=== PATIENT | female | born 1980 | race Caucasian/White ===

== ENCOUNTER 2025-05-10 18:55 | Emergency (ER) | payer OTHER, SELFPAY ==
[2025-05-10 18:56] VITALS: BP 117/92; TEMP 35.9
--- OUTSIDE RECORDS SUMMARY | 2025-05-10 18:57 | XMS_ITS | Encounter Summary ---
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
--- OUTSIDE RECORDS SUMMARY | 2025-05-10 18:57 | XMS_ITS | Continuity of Care Document ---
Author Organization [facility] Address [address] [place] [address] Phone Care Team Providers Care Elementary Substitute Teacher Name Role Phone Melissa ANDIRosa Unavailable Unavailable Advance Directives Directive Yes / No Effective Date File Name No Information Encounters Encounter Description Practice Location Reason(s) For Visit Diagnoses Date Provider Providers Copied on Encounter [facility], [address] [place], [id number], [place] tel:[phone] [facility] No Information 2 Melissa Rosa. [address] [place], [id number], [place]. tel:[phone] Family History Family Member Type Diagnosis Age At Onset No Information Payers Payer name Insurance type Covered alliance party ID Authoriza tion(s) No Information Social History Type Description Quantity Date Captured Comments Sex Female Smoking Status No Information Chief Complaint And Reason For Visit No Information Reason For Referral Reason For Referral No Information History Of Present Illness Encounter Date Complaint History Of Prese nt Illness No Information Functional Status Date Functional Assessmen t No Information Instructions Date Instruction Additional Infor mation No Information Assessments Type Assessment Date No Information Patient Care Teams Name Effective Dates (start - stop) Status Members No Information
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
--- NOTE | 2025-05-10 19:06 | ED.GENADULT ---
HPI - General Adult General Chief complaint: Unspecified Stated complaint: swelling Time Seen by Provider: 05/10/25 18:59 Source: patient Mode of arrival: ambulatory Limitations: no limitations History of Present Illness HPI narrative: this is a 44-year-old female who presents with some neck pain and numbness radiating to her right arm with with no right arm weakness no neurological deficits nose pain in her right arm no redness or erythema no chest pain no shortness of breath abdominal pain no fever chills. Onset (ago): hour(s) Location: upper extremity Radiation: neck Severity: mild Related Data Allergies Allergy/AdvReac Type Severity Reaction Status Date / Time codeine Allergy Unknown Unknown Verified 05/10/25 19:00 Penicillins Allergy Unknown Unknown Verified 05/10/25 19:00 BUTORPHANOL TARTRATE Allergy Unknown Unknown Uncoded 05/10/25 19:00 Review of Systems Review of Systems: All systems reviewed & are unremarkable except as noted in HPI and below PMFSH Past Medical History Medical History Patient denies medical problems Exam Const: General: cooperative, healthy appearing, comfortable, no acute distress, well developed, alert and awake HENMT: Head: normal to inspection and No palpable skull fracture present Eyes: General: appearance normal, both eyes and all related structures Visual Campbell: normal visual campbell by confrontation Neck: Neck: normal visual inspection, full ROM, no lymphadenopathy and no meningeal signs Chest: Chest palpation & inspection: normal inspection of the chest and normal palpation of entire chest wall Resp: Effort & Inspection: normal respiratory effort and able to speak in complete sentences Auscultation: clear to auscultation bilaterally Cardio: Palpation: normal PMI Rate: regular rate Rhythm: regular rhythm Heart sounds: S1 normal heart sound present and S2 normal heart sound present GI: Inspection: normal to inspection : General: Yes bimanual renal exam normal bilaterally Back/Spine/Pelvis: Back: no CVA tenderness Cervical Spine: normal cervical lordosis and pain with cervical ROM Thoracic/Lumbar Spine: thoracic and lumbar spine normal to inspection and straight leg raise negative bilaterally Skin: General skin exam: normal color and no rashes or lesions noted Neuro: General: oriented to person, oriented to place, oriented to time, patient oriented x3 and gait normal Speech: normal speech Gait exam (Neuro): Normal gait present Course Course Emergency Course: patient evaluated reassured and having neck pain with some radiculopathy and will be sending prescription medication to patient's pharmacy. Vital Signs Vital signs: Vital Signs Temperature 35.9 C L 05/10/25 18:56 Blood Pressure 117/92 H 05/10/25 18:56 Temperature 35.9 C L 05/10/25 18:56 Blood Pressure 117/92 H 05/10/25 18:56 Medical Decision Making Vital Signs Vital Signs: Vital Signs Temperature 35.9 C L 05/10/25 18:56 Blood Pressure 117/92 H 05/10/25 18:56 Temperature 35.9 C L 05/10/25 18:56 Blood Pressure 117/92 H 05/10/25 18:56 Critical Care Time Critical Care Time Critical Care Time: No Discharge Plan Discharge Clinical Impression: Cervical radiculopathy Patient Disposition: Home Condition: Stable Instructions: Antibiotic Form, Cervical Radiculopathy (ED) Additional Instructions: advised patient to take medication as prescribed and to follow with primary care physician within the next 3 to 5 days for further evaluation and treatment. Patient Language: Slovenian Prescriptions: New naproxen 500 mg tablet 500 mg PO BID PRN (Reason: pain) Qty: 14 0RF Follow-up/Referrals: Ty Walker DO [Primary Care Provider] - Time of Disposition: 19:11
--- OUTSIDE RECORDS SUMMARY | 2025-05-10 19:15 | XMS_ITS | Encounter Summary ---
Author Organization [facility] Address [address] [place] [address] Phone Care Team Providers Care Non Cdl Driver Name Role Phone Patrick Barton MD Unavailable [phone] Odilia Reyes MD Primary Care Provider [phone] Jose Gilliland MD Unavailable [phone] Bi Shafer MD Unavailable [phone] Reason for Visit * Reason Comments Medication Refill Encounter Details Date Type Department Care Team (Late st Contact Info) Description 02/08/2025 Refill [facility] #[address] [place] [address] Patrick Barton MD [address] [place] [address] Medication Refill Social History Tobacco Use Types Packs/Day Years Used Date Smoking Tobacco: Every Day Cigarettes 1 17 Smokeless Tobacco: Never Alcohol Use Standard Drinks/Week Comments Yes 0 (1 standard drink = 0.6 oz pur e alcohol) occassional Comments No Sex and Gender Information Value Date Recorded Sex Assigned at Not on file Legal Sex Female 7:14 PM CDT Gender Identity Not on file Sexual Orientation Not on file Occupation Industry Job Start Date Job End Date unemployed Not on file Not on file Not on file documented as of this encounter Plan of Treatment Upcoming Encounters Date Type Department Care Team (Late st Contact Info) Description 10/01/2025 11:00 AM FLOWER SHOP LABORER/DESIGNER Office Visit [facility] [address] [place] [address] Bi Shafer MD [address] [place] [address] documented as of this encounter Visit Diagnoses Not on filedocumented in this encounter Care Teams Non Cdl Driver Relationship Specialty Start Date End Date Odilia Reyes MD [address] [place] [address] PCP - General Family Medicine 10/20/22 Patrick Barton MD [address] [place] [address] Consulting Physician Neurology 02/16/22 Jose Gilliland MD [address] [place] [address] Consulting Physician Gastroenterology 12/24/22 Bi Shafer MD [address] [place] [address] Consulting Physician Medical Oncology 08/19/23 documented as of this encounter
--- OUTSIDE RECORDS SUMMARY | 2025-05-10 19:15 | XMS_ITS | Encounter Summary ---
Author Organization [facility] Address [address] [place] [address] Phone Care Team Providers Care Mail Distribution Clerk Name Role Phone Patrick Barton MD Unavailable [phone] Odilia Reyes MD Primary Care Provider [phone] Jose Gilliland MD Unavailable [phone] Bi Shafer MD Unavailable [phone] Reason for Visit * Reason Comments Medication Refill Encounter Details Date Type Department Care Team (Late st Contact Info) Description 02/04/2023 Refill [facility] #2 [place] [address] Patrick Barton MD [address] [place] [address] Medication Refill Social History Tobacco [...] file Not on file Not on file COVID-19 Exposure Response Date Recorded In the last 10 days, have yo u been in contact with someone who was confirmed or suspected to have Coronavirus/COVID-19? No / Unsure 01/30/2023 8:41 PM CDT documented as of this encounter Miscellaneous Notes * Telephone Encounter - Odilia Casas RN - 02/04/2023 3:20 PM CDT Medication failed the protocol, provider to review and approve the medication order if appropriate. Requested Prescriptions Pending Prescriptions Disp Refills gabapentin (NEURONTIN) 300 MG Capsule [Pharmacy Med Name: GABAPENTIN 300MG CAPS] 270 Capsule 0 Sig: TAKE ONE CAPSULE BY MOUTH THREE TIMES A DAY Not Delegated - Anticonvulsants Excluding Benzodiazepines Protocol Failed - 02/04/2023 2:46 PM Failed - This refill cannot be delegated Passed - Visit with relevant provider in past 12 months or upcoming 90 days Recent Visits Date Type Provider Dept 02/16/22 Office Visit Patrick Barton MD [facility] Neurology [facility] Showing recent visits within past 365 days and meeting all other requirements Future Appointments No visits were found meeting these conditions. Showing future appointments within next 90 days and meeting all other requirements documented in this encounter Plan of Treatment Upcoming Encounters Date Type Department Care Team (Late st Contact Info) Description 10/01/2025 11:00 AM INTERSTATE BUS DRIVER [facility] [address] [place] [address] Bi Shafer MD [address] [place] [address] documented as of this encounter Visit Diagnoses Not on filedocumented in this encounter Care Teams Mail Distribution Clerk Relationship Specialty Start Date End Date Odilia Reyes MD [address] [place] [address] DR TEJEDA [address] [place] [address] PCP - General Family Medicine 10/20/22 Patrick Barton MD [address] [place] [address] Consulting Physician Neurology 02/16/22 Jose Gilliland MD [address] [place] [address] Consulting Physician Gastroenterology 12/24/22 Bi Shafer MD [address] [place] [address] Consulting Physician Medical Oncology 08/19/23 documented as of this encounter
--- OUTSIDE RECORDS SUMMARY | 2025-05-10 19:15 | XMS_ITS | Encounter Summary ---
Author Organization [facility] Address [address] [place] [address] Phone Care Team Providers Care Director Emergency Department Name Role Phone Patrick Barton MD Unavailable [phone] Odilia Reyes MD Primary Care Provider [phone] Jose Gilliland MD Unavailable [phone] Bi Shafer MD Unavailable Encounter Details Date Type Department Care Team (Late st Contact Info) Description 03/20/2025 Results Follow-Up [facility] Oncologists [address] [place] [address] Dasha Gleason, SAMPLE STITCHER, [employer] [address] [place], [place] [id number] CMP (COMPREHENSIVE METABOLIC PANEL), FERRITIN, VITAMIN B12, Additional followed-up results: 2 Social History Tobacco Use Types Packs/Day Years [...] Upcoming Encounters Date Type Department Care Team ([facility] st Contact Info) Description 10/01/2025 11:00 AM SENIOR PROCUREMENT MANAGER Office Visit [facility] [address] [place] [address] Bi Shafer MD [address] [place] [address] documented as of this encounter Visit Diagnoses Not on filedocumented in this encounter Care Teams Director Emergency Department Relationship Specialty Start Date End Date Odilia Reyes MD [address] [place] [address] PCP - General Family Medicine 10/20/22 Patrick Barton MD [address] [place] [address] Consulting Physician Neurology 02/16/22 Jose Gilliland MD [address] [place] [address] Consulting Physician Gastroenterology 12/24/22 Bi Shafer MD [address] [place] [address] Consulting Physician Medical Oncology 08/19/23 documented as of this encounter
--- OUTSIDE RECORDS SUMMARY | 2025-05-10 19:15 | XMS_ITS | Continuity of Care Document ---
Author Organization [facility] Address [address] [place] [address] Phone Care Team Providers Care Poker Machine Attendant Name Role Phone Melissa ANDIRosa Unavailable Unavailable Advance Directives Directive Yes / No Effective Date File Name No Information Encounters Encounter Description Practice Location Reason(s) For Visit Diagnoses Date Provider Providers Copied on Encounter [facility], [address] [place], [id number], [place] tel:[phone] [facility] No Information 2 Melissa Rosa. [address] [place], [id number], [place]. tel:[phone] Family History Family Member Type Diagnosis Age At Onset No Information Payers Payer name Insurance type Covered green party ID Authoriza tion(s) No Information Social [...]
--- OUTSIDE RECORDS SUMMARY | 2025-05-10 19:15 | XMS_ITS | Encounter Summary ---
Author Organization [facility] Address [address] [place] [address] Phone Care Team Providers Care Lan Specialist Name Role Phone Jj Adams MD Primary Care Provider Provider, None Primary Care Provider Unavailabl e Patrick Barton MD Unavailable [phone] Provider, Not On File Primary Care Provider Unav ailable Odilia Reyes MD Primary Care Provider [phone] Jose Gilliland MD Unavailable [phone] Bi Shafer MD Unavailable [phone] Reason for Visit * Reason Comments Medication Refill Encounter Details Date Type Department Care Team (Late st Contact Info) Description 05/22/2021 Refill [facility] [address] [place] [address] [address] Patrick Barton MD [address] [place] [address] Medication Refill Social History Tobacco [...] st Contact Info) Description 10/01/2025 11:00 AM BEAM SAW OPERATOR Office Visit [facility] [address] [place] [address] Bi Shafer MD [address] [place] [address] documented as of this encounter Visit Diagnoses Not on filedocumented in this encounter Care Teams Lan Specialist Relationship Specialty Start Date End Date Jj Adams MD [address] [place] [address] [place] [address] PCP - General Family Medicine 08/01/20 02/15/22 Provider, None [place] PCP - General 02/16/22 10/15/22 Provider, Not On File [place] PCP - General 10/16/22 10/19/22 Odilia Reyes MD [address] [place] [address] [place] [address] PCP - General Family Medicine 10/20/22 Patrick Barton MD [address] [place] [address] Consulting Physician Neurology 02/16/22 Jose Gilliland MD [address] [place] [address] Consulting Physician Gastroenterology 12/24/22 Bi Shafer MD [address] [place] [address] Consulting Physician Medical Oncology 08/19/23 documented as of this encounter
--- OUTSIDE RECORDS SUMMARY | 2025-05-10 19:15 | XMS_ITS | Encounter Summary ---
Author Organization [facility] Address [address] [place] [address] Phone Care Team Providers Care Radiology Resident Name Role Phone Patrick Barton MD Unavailable [phone] Odilia Reyes MD Primary Care Provider [phone] Jose Gilliland MD Unavailable [phone] Bi Shafer MD Unavailable [phone] Reason for Visit * Reason Comments Medication Refill Encounter Details Date Type Department Care Team (Late st Contact Info) Description 04/05/[address] [facility] [address] [place] [address] Patrick Barton MD [address] [place] [address] Medication Refill Social History Tobacco [...] suspected to have Coronavirus/COVID-19? No / Unsure 04/04/2023 1:42 PM CDT documented as of this encounter Miscellaneous Notes * Telephone Encounter - Odilia Casas RN - 04/06/2023 8:19 AM CDT Medication failed the protocol, provider to review and approve the medication order if appropriate. Requested Prescriptions Pending Prescriptions Disp Refills gabapentin (NEURONTIN) 300 MG Capsule [Pharmacy Med Name: GABAPENTIN 300MG CAPS] 90 Capsule 0 Sig: TAKE ONE CAPSULE BY MOUTH THREE TIMES A DAY Not Delegated - Anticonvulsants Excluding Benzodiazepines Protocol Failed - 04/05/2023 1:30 PM Failed - This refill cannot be delegated Passed - Visit with relevant provider in past 12 months or upcoming 90 days Recent Visits No visits were found meeting these conditions. Showing recent visits within past 365 days and meeting all other requirements Future Appointments Date Type Provider Dept 06/29/23 Appointment Patrick Barton MD [facility]rology [facility] Showing future appointments within next 90 days and meeting all other requirements documented in this encounter Plan of Treatment Upcoming Encounters Date Type Department Care Team (Late st Contact Info) Description 10/01/2025 11:00 AM TRAIN DISPATCHER [facility] [address] [place] [address] Bi Shafer MD [address] [place] [address] documented as of this encounter Visit Diagnoses Not on filedocumented in this encounter Care Teams Radiology Resident Relationship Specialty Start Date End Date Odilia Reyes MD [address] [place] [address] DR TEJED[address] [place] [address] PCP - General Family Medicine 10/20/22 Patrick Barton MD [address] [place] [address] Consulting Physician Neurology 02/16/22 Jose Gilliland MD [address] [place] [address] Consulting Physician Gastroenterology 12/24/22 Bi Shafer MD [address] [place] [address] Consulting Physician Medical Oncology 08/19/23 documented as of this encounter
--- OUTSIDE RECORDS SUMMARY | 2025-05-10 19:15 | XMS_ITS | Encounter Summary ---
Author Organization [facility] Address [address] [place] [address] Phone Care Team Providers Care Retention Representative Name Role Phone Jj Adams MD Primary Care Provider [phone] Provider, None Primary Care Provider Unavailabl e Patrick Barton MD Unavailable [phone] Provider, Not On File Primary Care Provider Unav ailable Odilia Reyes MD Primary Care Provider [phone] Jose Gilliland MD Unavailable [phone] Bi Shafer MD Unavailable [phone] Reason for Visit * Reason Comments Medication Refill Encounter Details Date Type Department Care Team (Late st Contact Info) Description 11/26/2021 Refill [facility] - [facility] #[address] [place] [address] Patrick Barton MD [address] [place] [address] Medication Refill Social History Tobacco [...] on file documented as of this encounter Miscellaneous Notes * Telephone Encounter - Odilia Casas RN - 11/27/2021 9:47 AM CST . M ENGINEER documented in this encounter Plan of Treatment Upcoming Encounters Date Type Department Care Team (Late st Contact Info) Description 10/01/2025 11:00 AM STEAM ENGINEER Office Visit [facility] On[facility] [address] [place] [address] Bi Shafer MD [address] [place], [place] [phone] documented as of this encounter Visit Diagnoses Diagnosis Trigeminal neuralgia documented in this encounter Care Teams Retention Representative Relationship Specialty Start Date End Date Jj Adams MD [address] [facility] [address] [address] [place] [address] PCP - General Family Medicine 08/01/20 02/15/22 Provider, None [place] PCP - General 02/16/22 10/15/22 Provider, Not On File [place] PCP - General 10/16/22 10/19/22 Odilia Reyes MD [address] [place] [address] PCP - General Family Medicine 10/20/22 Patrick Barton MD [address]2 [facility] [place] [address] Consulting Physician Neurology 02/16/22 Jose Gilliland MD [address] [place] [address] Consulting Physician Gastroenterology 12/24/22 Bi Shafer MD [address] [place] [address] Consulting Physician Medical Oncology 08/19/23 documented as of this encounter
--- OUTSIDE RECORDS SUMMARY | 2025-05-10 19:15 | XMS_ITS | Encounter Summary ---
Author Organization [facility] Address [address] [place] [address] Phone Care Team Providers Care General Farmworker Name Role Phone Patrick Barton MD Unavailable [phone] Odilia Reyes MD Primary Care Provider [phone] Jose Gilliland MD Unavailable [phone] iB Shafer MD Unavailable [phone] Reason for Visit * Reason Comments Medication Refill Encounter Details Date Type Department Care Team (Late st Contact Info) Description 02/04/2024 Refill [facility] [address] [place] [address] Patrick Barton MD [address] [place] [address] Medication Refill Social History Tobacco [...] Telephone Encounter - Odilia Casas RN - 02/07/2024 8:23 AM CDT Medication failed the protocol, provider to review and approve the medication order if appropriate. Requested Prescriptions Pending Prescriptions Disp Refills amitriptyline (ELAVIL) 25 MG Tablet [Pharmacy Med Name: AMITRIPTYLINE HCL 25 MG TAB] 90 Tablet 1 Sig: TAKE 1 TABLET BY MOUTH EVERY DAY AT NIGHT Not Delegated - Tricyclic Agents Protocol Failed - 02/04/2024 11:04 PM Failed - This refill cannot be delegated Passed - Visit with relevant provider in past 12 months or upcoming 90 days Recent Visits Date Type Provider Dept 01/04/24 Telemedicine Patrick Barton MD [facility] Neurology [facility] 05/17/23 Office Visit Patrick Barton MD [facility] Showing recent visits within past 365 days and meeting all other requirements Future Appointments No visits were found meeting these conditions. Showing future appointments within next 90 days and meeting all other requirements documented in this encounter Plan of Treatment Upcoming Encounters Date Type Department Care Team (Late st Contact Info) Description 10/01/2025 11:00 AM AUTO CLUB TRAVEL COUNSELOR [facility] [address] [place] [address] Bi Shafer MD [address] [place] [address] documented as of this encounter Visit Diagnoses Not on filedocumented in this encounter Care Teams General Farmworker Relationship Specialty Start Date End Date Odilia Reyes MD [address] [place] [address] [address] PCP - General Family Medicine 10/20/22 Patrick Barton MD [address] [place] [address] Consulting Physician Neurology 02/16/22 Jose Gilliland MD [address] [place] [address] Consulting Physician Gastroenterology 12/24/22 Bi Shafer MD [address] [place] [address] Consulting Physician Medical Oncology 08/19/23 documented as of this encounter
--- OUTSIDE RECORDS SUMMARY | 2025-05-10 19:15 | XMS_ITS | Clinical Summary ---
Author Organization [facility] Address [address] [place] [address] Phone Care Team Providers Care Supervisor Ore Dressing Name Role Phone Patrick Barton MD Unavailable [phone] Odilia Reyes MD Primary Care Provider [phone] Jose Gilliland MD Unavailable [phone] Bi Shafer MD Unavailable [phone] Allergies Active Allergy Reactions Criticality Noted Date Comments Aripiprazole Other (see Comments) 05/17/2023 Shaking/drooling Baclofen Vomiting 02/12/2022 Hand/leg swelling Nsaids Other (see Comments) 08/22/2020 ulcers Penicillins Anaphylaxis High 09/19/2019 Butorphanol Other (see Comments) High 09/19/2019 B/P bottomed out and blacked out Medications melatonin 3 MG Tablet Take 5 mg by mouth nightly. Active Cariprazine HCl 3 MG Capsule Take by mouth. Acti ve venlafaxine (EFFEXOR-XR) 75 MG CAPSULE SR 24 HR Take 75 mg by mouth in the morning and at bedtime. 023 Active prazosin (MINIPRESS) 2 MG Capsule 2 times daily. 023 Active hydrOXYzine (ATARAX) 25 MG Tablet TAKE 1 TABLET BY MOUTH THREE TIMES A DAY NEEDED 023 Active cyanocobalamin (VITAMIN B-12) 1000 MCG/ML Solution 1 mL by Subcutaneous route every 30 days. 3 mL 6 024 Active Additional Information Patient not taking.Reported on 03/29/2025 Insulin Syringe-Needle U-100 (INSULIN SYRINGE 1CC/31G) 31G X 03/16 1 ML Misc As instructed 12 Each 2 024 Active amitriptyline (ELAVIL) 25 MG Tablet TAKE 1 TABLET BY MOUTH EVERY DAY AT NIGHT 90 Tablet 1 024 Active pantoprazole (PROTONIX) 40 MG Tablet Delayed ResponseIndications :Symptomatic Gastroesophageal Reflux Disease (Inactive) TAKE 1 TABLET BY MOUTH DAILY. INDICATIONS: GASTROESOPHAGEAL REFLUX DISEASE WITH CURRENT SYMPTOMS 90 Tablet 025 Active Active Problems Problem Noted Date Diagnosed Date Neck pain 03/29/2025 Absolute anemia 09/21/2024 B12 deficiency 02/21/2024 Morbid obesity 01/10/2024 H/O splenectomy 11/16/2023 Iron deficiency anemia due to chronic blood loss 09/20/2023 Acute blood loss anemia 08/19/2023 Internal jugular (IJ) vein thromboembolism, acut e, right 08/19/2023 Odontogenic infection of jaw 08/19/2023 KARLOS (obstructive sleep apnea) 08/01/2020 Gastroesophageal reflux disease without esophagi tis 08/01/2020 Major depressive disorder with single episode Encounters Date Type Department Care Team Description 03/29/2025 11:00 AM CDT Office Visit [facility] Oncology Services [address] [place] [address] Bi Shafer MD Internal jugular (IJ) vein thromboembolism, acute, right (HCC) (Primary Dx); Neck pain; H/O splenectomy; Other vitamin B12 deficiency anemia; Iron deficiency anemia due to chronic blood loss; Odontogenic infection of jaw Discharge Disposition: Discharged to home or Selfcare 03/29/2025 Travel 03/20/2025 Results Follow-Up [facility] [address] [place] [address] Dasha Gleason, CASTING CLEANER, PRESS TOOL MAKER CMP (COMPREHENSIVE METABOLIC PANEL), FERRITIN, VITAMIN B12, Additional followed-up results: 2 02/08/2025 Telephone [facility] [address] [place] [address] Patrick Barton MD 02/08/2025 [facility] [place] [address] Patrick Barton MD Medication Refill from Last 3 Months Family History Medical History Relation Name Comments Depression Father Hypertension Father Other-comment Father Lung disease f rom chemical spill Cancer Maternal Grandfather lung Heart Attack Maternal Grandfather Depression Mother Relation Name Status Comments Father Alive Maternal Grandfather Mother Alive Social History Tobacco Use Types Packs/Day Years Used Date Smoking Tobacco: Every Day Cigarettes 1 17 Smokeless Tobacco: Never Tobacco Cessation:Ready to Q uit: Not Asked; Counseling Given: Not Answered Alcohol Use Standard Drinks/Week Comments Yes 0 [...] file Not on file Not on file Last Filed Vital Signs Vital Sign Reading Time Taken Comments Blood Pressure 125/83 03/29/2025 11:09 AM CDT Pulse 82 03/29/2025 11:09 AM CDT Temperature 36.8 C (98.2 F) 03/29/2025 11:09 AM CDT Respiratory Rate 18 03/29/2025 11:0 9 AM CDT Oxygen Saturation 100% 03/29/2025 11: 09 AM CDT Inhaled Oxygen Concentration - - Weight 139.2 kg (306 lb 14.4 oz) 2024 11:09 AM CDT Height 170.2 cm (5' 7) 03/29/2025 11:0 9 AM CDT Body Mass Index 48.07 03/29/2025 11:09 AM CDT Plan of Treatment Upcoming Encounters Date Type Department Care Team (Late st Contact Info) Description 10/01/2025 11:00 AM BOMB TECHNICIAN Office Visit [facility] On[facility] Services [address] [place] [address] Bi Shafer MD [address] [place] [address] Health Maintenance Due Date Last Done Comments Hepatitis C Virus (HCV) Screening 1981 Meningococcal Immunization (ACWY) (1 - Risk 2-dose series) 1983 Human Papillomavirus (HPV) Immunization (1 - 3-dose series) 1996 Hepatitis B Immunization (1 of 3 - 19+ 3-dose series) 2000 Pap Smear 2002 Cervical Cancer Screening (CCS) 2011 HPV/Cotest 2011 Mammogram 05/26/2024 05/26/2023 SARS-COV-2 Immunization ( season) 2024 Influenza Immunization (#1) 07/02/202508/02, 08/02/2019, 07/29/2017, Additional history exists Colonoscopy 07/02/2031 07/02/2021 Colorectal Cancer Screening 07/02/2031 Respiratory Syncytial Virus (RSV) Immunization (Adult) (1 - 1-dose 75+ series) 2056 Discussion re Starting/Frequency of Mammograms Completed 05/26/2023 DTaP/Tdap/Td Immunization Discontinued 10/15/2023 Pneumococcal Immunization Combined Completed 10/15/2023, 08/02/2019, 11/01/2013 TdaP Immunization Completed 10/15/2023 Rotavirus Immunization Aged Out No lo nger eligible based on patient's age to complete this topic Procedures Procedure Name Priority Date/Time Associated Diagnosis Comments CBC WITH AUTO DIFFERENTIAL Routine 03/20/2025 12:21 PM CDT Other iron deficiency anemia Other vitamin B12 deficiency anemia IRON,TRANSFERN,CALC.T IBC,%SAT Routine 03/20/2025 12:21 PM CDT Other iron deficiency anemia VITAMIN B12 Routine 03/20/2025 12:21 PM CDT Other vitamin B12 deficiency anemia FERRITIN Routine 03/20/2025 12:21 PM CDT Other iron deficiency anemia CMP (COMPREHENSIVE METABOLIC PANEL) Routine 03/20/2025 12:21 PM CDT Other iron deficiency anemia Other vitamin B12 deficiency anemia COMPLETE BLOOD COUNT (CBC) WITH DIFF Routine 03/20/2025 12:21 PM CDT Other iron deficiency anemia Other vitamin B12 deficiency anemia CHETAN SCREENING BILATERAL DIGITAL W CAD W NANCY Routine 05/26/2023 12:33 PM CDT Encounter for screening mammogram for malignant neoplasm of breast from Last 3 Months or Most Recently Relevant to Health Maintenance Results * (ABNORMAL) IRON,TRANSFERN,CALC.TIBC,%SAT (03/20/2025 12:21 PM CDT) IRON 90 25 - 156 mcg/dL 03/20/2025 1:42 PM CDT [facility] TRANSFERRIN 191 180 - 382 mg/dL 03/20/2025 1:[address] [facility] TIBC, CALCULATED 239(L) 265 - 497 mcg/dL 03/20/2025 1:[address] [facility] % SATURATION * 38 15 - 62 % 03/20/2025 1:[address] [facility] Blood Venipuncture / Unknown 03/20/2025 12:21 PM CDT 03/20/2025 1:16 PM CDT us Dasha Gleason CASTING CLEANER, PRESS TOOL MAKER CHEMISTRY ORDERABLES F inal Result [facility] [address] [place] [address] * (ABNORMAL) CBC WITH AUTO DIFFERENTIAL (03/20/2025 12:21 PM CDT) WBC 12.63(H) 4.00 - 12.00 10(3)/mcL 03/20/2025 1:[address] [facility] RBC 4.80 3.80 - 5.30 10(6)/[facility] 03/20/2025 1:[address] [facility] HEMOGLOBIN (HGB) 15.1 12.0 - 15.8 g/dL 03/20/2025 1:[address] [facility] HEMATOCRIT (HCT) 46.2 36.0 - 47.0 % 03/20/2025 1:[address] [facility] MCV 96.3(H) 82.0 - 96.0 fL 03/20/2025 1:[address] [facility] MCH 31.5 26.0 - 34.0 pg 03/20/2025 1:[address] [facility] MCHC 32.7 31.0 - 36.0 g/dL 03/20/2025 1:20 PM CDT [facility] PLATELET COUNT 228 140 - 440 10(3)/[facility] 03/20/2025 1:20 PM CDT [facility] RDW 13.1 11.8 - 15.5 % 03/20/2025 1:[address] [facility] MPV 11.6 9.7 - 12.4 fL 03/20/2025 1:20 PM CDT [facility] NEUTROPHILS 57.9 47.0 - 73.0 % 03/20/2025 1:[address] [facility] LYMPHOCYTES 30.3 18.0 - 42.0 % 03/20/2025 1:[address] [facility] MONOCYTES 8.2 4.0 - 12.0 % 03/20/2025 1:[address] [facility] EOSINOPHILS 2.3 0.0 - 5.0 % 03/20/2025 1:[address] [facility] BASOPHILS 1.3(H) 0.0 - 1.0 % 03/20/2025 1:[address] [facility] ABSOLUTE NEUTROPHILS 7.31 1.60 - 7.70 10(3)/mcL 03/20/2025 1:[address] [facility] ABSOLUTE LYMPHOCYTES 3.83(H) 1.30 - 3.20 10(3)/mcL 03/20/2025 1:20 PM CDT [facility] ABSOLUTE MONOCYTES 1.04(H) 0.20 - 1.00 10(3)/mcL 03/20/2025 1:20 PM CDT [facility] ABSOLUTE EOSINOPHIL 0.29 0.00 - 0.40 10(3)/mcL 03/20/2025 1:[address] [facility] ABSOLUTE BASOPHILS 0.16(H) 0.00 - 0.10 10(3)/[facility] 03/20/2025 1:[address] [facility] NRBC PER 100 WBC 0 03/20/20 1:[address] [facility] Blood Venipuncture / Unknown 03/20/2025 12:21 PM CDT 03/20/2025 1:16 PM CDT us Dasha Gleason APRN, PRESS TOOL MAKER HEMATOLOGY ORDERABLES Final Result Performing Organization Address City/[facility]/ZIP Co de Phone Number [facility] [address] [place] [address] * VITAMIN B12 (03/20/2025 12:21 PM CDT) VITAMIN B12 497 213 - 816 pg/mL 03/20/2025 2:[address] [facility] Blood Venipuncture / Unknown 03/20/2025 12:21 PM CDT 03/20/2025 1:16 PM CDT us Dasha Gleason APRN, PRESS TOOL MAKER CHEMISTRY ORDERABLES F inal Result Performing Organization Address City/[facility]/ZIP Co de Phone Number [facility] [address] [place] [address] * FERRITIN (03/20/2025 12:21 PM CDT) FERRITIN 88 5 - 204 ng/mL 03/20/2025 1:58 PM CDT [facility] Blood Venipuncture / Unknown 03/20/2025 12:21 PM CDT 03/20/2025 1:16 PM CDT us Dasha Gleason CASTING CLEANER, PRESS TOOL MAKER CHEMISTRY ORDERABLES F inal Result [facility] [address] [place] [address] * (ABNORMAL) CMP (COMPREHENSIVE METABOLIC PANEL) (03/20/2025 12:21 PM CDT) Pathologist [facility] SODIUM 139 136 - 145 mmol/L 03/20/2025 1:42 PM CDT [facility] POTASSIUM 4.8 3.5 - 5.1 mmol/L 03/20/2025 1:42 PM CDT [facility] CHLORIDE 107 98 - 107 mmol/L 03/20/2025 1:42 PM CDT [facility] CO2, VENOUS 25 22 - 30 mmol/L 03/20/2025 1:42 PM CDT [facility] ANION GAP 11.8 <18.0 mmol/L 03/20/2025 1:42 PM CDT [facility] GLUCOSE 94 70 - 99 mg/dL 03/20/2025 1:42 PM CDT [facility] BUN 11 5 - 18 mg/dL 03/20/2025 1:42 PM CDT [facility] CREATININE, BLOOD 1.25(H) 0.60 - 1.00 mg/dL 03/20/2025 1:42 PM CDT [facility] BUN/CREATININE RATIO 9(L) 12 - 20 ratio 03/20/2025 1:42 PM CDT [facility] TOTAL PROTEIN 7.8 6.0 - 8.0 g/dL 03/20/2025 1:[address] [facility] ALBUMIN 3.8 3.5 - 5.0 g/dL 03/20/2025 1:[address] [facility] A/G RATIO 1.0 1.0 - 2.2 03/20/2025 1:[address] [facility] CALCIUM 8.9 8.7 - 10.5 mg/dL 03/20/2025 1:[address] [facility] T BILI 0.3 0.2 - 1.2 mg/dL 03/20/2025 1:[address] [facility] SGOT (AST) 20 <43 U/L 03/20/2025 1:[address] [facility] SGPT (ALT) 13 <56 U/L 03/20/2025 1:42 PM CDT [facility] ALKALINE PHOSPHATASE 114 40 - 150 U/L 03/20/2025 1:42 PM CDT [facility] IS THE PATIENT REQUIRED TO BE FASTING? No 03/20/2025 1:42 PM CDT [facility] GFR, ESTIMATED 55(L) >=60 03/20/2025 1:42 PM CDT [facility] Comment: Creatinine Clearance is the preferred criteria for selecting drug dose adjustments in renally impaired patients. The GFR is provided as additional pertinent clinical information. GFR is reported in mL/min/1.73 sq m. Calculation based on the Chronic Kidney Disease Epidemiology Collaboration (CKD- EPI) equation refit without adjustment for race. GFR, EST. 57(L) >=60 025 1:[address] [facility] GFR, EST. NONAFRICAN 47(L) >=60 03/20/2025 1:42 PM CDT [facility] Blood Venipuncture / Unknown 03/20/2025 12:21 PM CDT 03/20/2025 1:16 PM CDT us Dasha Gleason CASTING CLEANER, PRESS TOOL MAKER CHEMISTRY ORDERABLES F inal Result [facility] [address] [place] [address] * CHETAN SCREENING BILATERAL DIGITAL W CAD W NANCY (05/26/2023 12:33 PM CDT) Anatomical Region Laterality Modality breast Bilateral Mammography 05/26/2023 12:2 6 PM CDT Narrative 05/27/2023 10:10 AM CDT - CHETAN SCREENING BILATERAL DIGITAL W CAD W NANCY BILATERAL DIGITAL SCREENING MAMMOGRAM 3D/2D WITH CAD WITH MEDIOLATERAL OBLIQUE CRANIOCAUDAL: 05/26/2023 The study was acquired using digital technology and interpreted from soft copy. Current study was also evaluated with ICAD version 7.2. 2D digital mammographic views, as well as 3D digital tomosynthesis were performed in the CC and MLO projections. CLINICAL: Baseline screening. Patient has no complaints. No personal history of cancer. No family history of breast cancer. COMPARISONS: No prior exams were available for comparison. BREAST TISSUE:There are scattered fibroglandular densities in both breasts. FINDINGS: No significant masses, calcifications, or other findings are seen in either breast. IMPRESSION: BI-RAD 1 NEGATIVE There is no mammographic evidence of malignancy. A 1 year screening mammogram is recommended. A letter will be sent to the patient with these results. The patient will be entered into a reminder system with a target due date of 1 year for her next screening exam. Electronically signed by: Rosy dobbs/iliana:05/26/2023 14:35:10 Hydrology Technician(s): RT Mitzy(R)(M), [facility] letter sent: Normal Exam Reading location: [facility] BI-RADS: 1 Negative Procedure Note Rosy Logan MD - 05/27/2023 - CHETAN SCREENING BILATERAL DIGITAL W CAD W NANCY BILATERAL DIGITAL SCREENING MAMMOGRAM 3D/2D WITH CAD WITH MEDIOLATERAL OBLIQUE CRANIOCAUDAL: 05/26/2023 The study was acquired using digital technology and interpreted from soft copy. Current study was also evaluated with ICAD version 7.2. 2D digital mammographic views, as well as 3D digital tomosynthesis were performed in the CC and MLO projections. CLINICAL: Baseline screening. Patient has no complaints. No personal history of cancer. No family history of breast cancer. COMPARISONS: No prior exams were available for comparison. BREAST TISSUE:There are scattered fibroglandular densities in both breasts. FINDINGS: No significant masses, calcifications, or other findings are seen in either breast. IMPRESSION: BI-RAD 1 NEGATIVE There is no mammographic evidence of malignancy. A 1 year screening mammogram is recommended. A letter will be sent to the patient with these results. The patient will be entered into a reminder system with a target due date of 1 year for her next screening exam. Electronically signed by: Rosy dobbs/iliana:05/26/2023 14:35:10 Hydrology Technician(s): RT Mitzy(R)(M), [facility] letter sent: Normal Exam Reading location: [facility] BI-RADS: 1 Negative Odilia Reyes MD IMG MAMMO ORDERABLES Final Re sult from Last 3 Months or Most Recently Relevant to Health Maintenance Insurance MEDICARE C [employer] Care Teams Supervisor Ore Dressing Relationship Specialty Start Date End Date Odilia Reyes MD [address] [place] [address] [place] [address] PCP - General Family Medicine 10/20/22 Patrick Barton MD [address] [place] [address] Consulting Physician Neurology 02/16/22 Jose Gilliland MD [address] [place] [address] Consulting Physician Gastroenterology 12/24/22 Bi Shafer MD [address] [place] [address] Consulting Physician Medical Oncology 08/19/23
--- OUTSIDE RECORDS SUMMARY | 2025-05-10 19:15 | XMS_ITS | Encounter Summary ---
Author Organization [facility] Address [address] [place] [address] Phone Care Team Providers Care Skate Maker Name Role Phone Patrick Barton MD Unavailable [phone] Odilia Reyes MD Primary Care Provider [phone] Jose Gilliland MD Unavailable [phone] Bi Shafer MD Unavailable [phone] Reason for Visit * Reason Comments Medication Refill Encounter Details Date Type Department Care Team (Late st Contact Info) Description 11/17/2022 Refill [facility] [address] [place] [address] Patrick Barton MD [address] [place] [address] Medication Refill Social History Tobacco [...] st Contact Info) Description 10/01/2025 11:00 AM CHILD WELFARE CONSULTANT Office Visit [facility] On[facility] [address] [place] [address] Bi Shafer MD [address] [place] [address] documented as of this encounter Visit Diagnoses Not on filedocumented in this encounter Care Teams Skate Maker Relationship Specialty Start Date End Date Odilia Reyes MD [address] [place] [address] PCP - General Family Medicine 10/20/22 Patrick Barton MD [address] [place] [address] Consulting Physician Neurology 02/16/22 Jose Gilliland MD [address] [place] [address] Consulting Physician Gastroenterology 12/24/22 Bi Shafer MD [address] [place] [address] Consulting Physician Medical Oncology 08/19/23 documented as of this encounter
--- OUTSIDE RECORDS SUMMARY | 2025-05-10 19:15 | XMS_ITS | Encounter Summary ---
Author Organization [facility] Address [address] [place] [address] Phone Care Team Providers Care Inspector Hot Forgings Name Role Phone Jj Adams MD Primary Care Provider [phone] Provider, None Primary Care Provider Unavailabl e Patrick Barton MD Unavailable [phone] Provider, Not On File Primary Care Provider Unav ailable Odilia Reyes MD Primary Care Provider [phone] Jose Gilliland MD Unavailable [phone] Bi Shafer MD Unavailable [phone] Reason for Visit * Reason Comments Medication Refill Encounter Details Date Type Department Care Team (Late st Contact Info) Description 01/14/[address] [facility] - Neurology - [place] [address] [place] [address] Patrick Barton MD [address] [place] [address] Medication Refill Social History Tobacco [...] Exposure Response Date Recorded In the last month, have you been in contact with someone who was confirmed or suspected to have Coronavirus / COVID-19? No / Unsure 01/03/2021 12:13 PM HOSPICE CONSULTANT documented as of this encounter Miscellaneous Notes * Telephone Encounter - Majo Gómez CMA - 01/16/2021 2:30 PM CDT Requested Prescriptions Pending Prescriptions Disp Refills ??? baclofen (LIORESAL) 20 MG Tablet [Pharmacy Med Name: BACLOFEN 20MG TABS] 90 Tablet 0 Sig: TAKE ONE TABLET BY MOUTH FOUR TIMES A DAY NEEDED FOR MUSCLE SPASMS documented in this encounter Plan of Treatment Upcoming Encounters Date Type Department Care Team (Late st Contact Info) Description 10/01/2025 11:00 AM HOSPICE CONSULTANT Office Visit [facility] On[facility] [address] [place] [address] Bi Shafer MD [address] [place] [address] documented as of this encounter Visit Diagnoses Diagnosis Trigeminal neuralgia documented in this encounter Care Teams Inspector Hot Forgings Relationship Specialty Start Date End Date Jj Adams MD [address] [place] [address] [address] [place] [address] PCP - General Family Medicine 08/01/20 02/15/22 Provider, None [place] PCP - General 02/16/22 10/15/22 Provider, Not On File [place] PCP - General 10/16/22 10/19/22 Odilia Reyes MD [address] [place] [address] [place] [address] PCP - General Family Medicine 10/20/22 Patrick Barton MD [address] [place] [address] Consulting Physician Neurology 02/16/22 Jose Gilliland MD [address] [place] [address] Consulting Physician Gastroenterology 12/24/22 Bi Shafer MD [address] [place] [address] Consulting Physician Medical Oncology 08/19/23 documented as of this encounter
--- OUTSIDE RECORDS SUMMARY | 2025-05-10 19:15 | XMS_ITS | Encounter Summary ---
Author Organization [facility] Address [address] [place] [address] Phone Care Team Providers Care Medical Scientific Officer Name Role Phone Jj Adams MD Primary Care Provider [phone] Provider, None Primary Care Provider Unavailabl e Patrick Barton MD Unavailable [phone] Provider, Not On File Primary Care Provider Unav ailable Odilia Reyes MD Primary Care Provider [phone] Jose Gilliland MD Unavailable [phone] Bi Shafer MD Unavailable [phone] Reason for Visit * Reason Comments Medication Refill Encounter Details Date Type Department Care Team (Late st Contact Info) Description 06/10/2021 Refill [facility] [facility] [address] [address] Patrick Barton MD [address] [place] [address] Medication Refill Social History Tobacco [...] st Contact Info) Description 10/01/2025 11:00 AM HOSPITAL ADMITTING CLERK Office Visit [facility] [address] [place] [id number] Bi Shafer MD [address] [place] [address] documented as of this encounter Visit Diagnoses Diagnosis Trigeminal neuralgia documented in this encounter Care Teams Medical Scientific Officer Relationship Specialty Start Date End Date Jj Adams MD [address] [place] [address] [place] [address] PCP - General Family Medicine 08/01/20 02/15/22 Provider, None [place] PCP - General 02/16/22 10/15/22 Provider, Not On File [place] PCP - General 10/16/22 10/19/22 Odilia Reyes MD [address] [place] [address] [place] [address] PCP - General Family Medicine 10/20/22 Patrick Barton MD [address] [place] [id number] Consulting Physician Neurology 02/16/22 Jose Gilliland MD [address] [place] [address] Consulting Physician Gastroenterology 12/24/22 Bi Shafer MD [address] [place] [address] Consulting Physician Medical Oncology 08/19/23 documented as of this encounter
== END 2025-05-10 19:41 | disposition home or self-care (01) ==
PROVIDERS: Emergency Provider Emergency Medicine; Referring Provider Family Medicine
DX: M54.12 Radiculopathy, cervical region (principal)
CPT/HCPCS: 99283